=== PATIENT | female | born 1970 | race Caucasian/White ===

== ENCOUNTER 2020-12-07 08:42 | Inpatient (IN) ==
[2020-12-07] MEDS ORDERED: Isovue-370 500 ML BOTTLE IVP ONE (09:20)
[2020-12-07] MEDS ORDERED: methylPREDNISolone 125 MG/2 ML VIAL IVP ONE (09:31)
[2020-12-07 09:35] LABS: Hematocrit 49.1 % (35.3-44.9); Hemoglobin 15.9 g/dL (11.5-15.4); Mean Corpuscular HGB Conc 32.4 g/dL (31.6-35.5); Mean Corpuscular Hemoglobin 30.2 pg (28.0-33.3); Mean Corpuscular Volume 93.3 fL (83.0-100.0); Mean Platelet Volume 9.9 fL (9.4-12.4); Platelet Count 223 K/mcL (140-400); Red Blood Count 5.26 M/mcL (3.82-4.97); Red Cell Distribution Width 12.9 % (11.5-14.5); White Blood Count 7.9 K/mcL (4.3-11.1)
[2020-12-07 09:56] LABS: BUN/Creatinine Ratio 11 (6-26); Blood Urea Nitrogen 9 mg/dL (6-20); Calcium 9.5 mg/dL (8.6-10.3); Carbon Dioxide 26 mEq/L (23-29); Chloride 104 mEq/L (98-107); Glucose 116 mg/dL (70-105); Osmolality,Calculated 286 (280-300); Potassium 4.3 mEq/L (3.5-5.1); Sodium 138 mEq/L (136-145); eGFR For African Americans > 60 (> 60); eGFR For Non-African Americans > 60 (> 60)
[2020-12-07] MEDS ORDERED: *HR* Heparin 5,000 UNIT/ML VIAL IVP ONE ×2 (12:00→18:44)
[2020-12-07] MEDS ORDERED: *HR* Heparin 5,000 UNIT/ML VIAL IVP PRN ×4 (12:00→18:44)
[2020-12-07] MEDS ORDERED: Heparin 25,000UNIT/250ML 1/2NS 25,000 UNIT/250 ML IV.SOLN IVC SCH (12:00)
[2020-12-07] MEDS ORDERED: Acetaminophen 325 MG TABLET PO PRN ×2 (12:17→18:44)
[2020-12-07] MEDS ORDERED: Naloxone 0.4 MG/ML INJ IVP PRN ×3 (12:17→18:44)
[2020-12-07] MEDS ORDERED: Ondansetron 4 MG/2 ML VIAL IVP PRN ×2 (12:17→18:44)
[2020-12-07 12:42] LABS: Prothrombin Time 11.4 Seconds (9.4-12.1)
[2020-12-07 12:45] LABS: Activated Partial Thrombo Time 33.5 Seconds (26.0-36.0); Heparin anti-factor XA UFH < 0.04 IU/mL (0.30-0.70)
[2020-12-07] MEDS ORDERED: *HR* HYDROmorphone (PF) 1 MG/ML SYRINGE IVP STA ×2 (12:51→18:44)
[2020-12-07] MEDS ORDERED: Ondansetron 4 MG/2 ML VIAL IVP ONE ×2 (12:52→18:44)
[2020-12-07] MEDS ORDERED: Heparin 1,000 UNITS/500 mL 1,500 ML ONE (13:01)
[2020-12-07] MEDS ORDERED: *HR* Rocuronium Bromide 50 MG/5 ML VIAL ONE ×2 (13:07→14:28)
[2020-12-07] MEDS ORDERED: *HR* Propofol 200 MG/20 ML VIAL IVP ONE (13:07)
[2020-12-07] MEDS ORDERED: Lidocaine -MPF 2% 5 ML VIAL ONE ×2 (13:07→16:20)
[2020-12-07] MEDS ORDERED: Ondansetron 4 MG/2 ML VIAL ONE (13:07)
[2020-12-07] MEDS ORDERED: *HR* FentaNYL (PF) 100 MCG/2 ML VIAL ONE (13:07)
[2020-12-07] MEDS ORDERED: *HR* Midazolam HCl 2 MG/2 ML VIAL ONE (13:07)
[2020-12-07] MEDS ORDERED: Lidocaine HCL 4 ML Topical Solution (Laryng-O-Jet Kit Sterile Pak) TP ONE (13:07)
[2020-12-07] MEDS ORDERED: *HR* Heparin 5,000 UNIT/ML VIAL ONE (13:08)
[2020-12-07] MEDS ORDERED: Vancomycin 1,250 MG/262.5 ML IV.SOLN IVPB ONE (13:08)
[2020-12-07] MEDS ORDERED: *HR* Phenylephrine 10 MG/ML VIAL ONE (13:10)
[2020-12-07] MEDS ORDERED: Heparin 1,000 UNITS/500 mL 500 ML ONE (13:11)
[2020-12-07] MEDS ORDERED: *HR* HYDROMORPHONE 2 MG/ML VIAL ONE (13:16)
[2020-12-07] MEDS ORDERED: Vancomycin 1,000 MG VIAL ONE (13:41)
[2020-12-07] MEDS ORDERED: ceFAZolin 1,000 MG, Sodium Chloride IRRigation 1,000 ML IR ONE (14:00)
[2020-12-07] MEDS ORDERED: *HR* HYDROmorphone (PF) 1 MG/ML SYRINGE IVP PRN (15:03)
[2020-12-07] MEDS ORDERED: 0.9 % Sodium Chloride 1,000 ML IVC SCH (18:44)
[2020-12-07] MEDS: Heparin 25,000UNIT/250ML 1/2NS 25,000 UNIT/250 ML IV.SOLN IVC SCH (22:15)
[2020-12-08] MEDS: *HR* HYDROmorphone (PF) 1 MG/ML SYRINGE IVP PRN ×3 (00:11→18:31)
[2020-12-08] MEDS: Vancomycin 1,250 MG/262.5 ML IV.SOLN IVPB SCH ×2 (04:17→14:50)
[2020-12-08] MEDS: 0.9 % Sodium Chloride 1,000 ML IV SCH ×2 (04:18→18:28)
[2020-12-08] MEDS ORDERED: Nicotine 14 MG PATCH.TD24 TD SCH (09:00)
[2020-12-08] MEDS: Nicotine 14 MG PATCH.TD24 TD SCH (11:30)
[2020-12-08] MEDS: Magnesium Oxide 400 MG TABLET PO SCH (20:23)
[2020-12-08] MEDS: Heparin 25,000UNIT/250ML 1/2NS 25,000 UNIT/250 ML IV.SOLN IVC SCH (23:30)
[2020-12-09 01:59] LABS: Basophils # 0.1 K/mcL (0.0-0.2); Basophils % 0.6 %; Eosinophils # 0.1 K/mcL (0.0-0.6); Eosinophils % 0.9 %; Hematocrit 36.6 % (35.3-44.9); Hemoglobin 11.4 g/dL (11.5-15.4); Immature Granulocytes % 0.6 % (0-4); Lymphocytes # 2.7 K/mcL (0.6-4.6); Lymphocytes % 26.6 %; Mean Corpuscular HGB Conc 31.1 g/dL (31.6-35.5); Mean Corpuscular Hemoglobin 30.2 pg (28.0-33.3); Mean Corpuscular Volume 97.1 fL (83.0-100.0); Mean Platelet Volume 10.1 fL (9.4-12.4); Monocytes # 0.8 K/mcL (0.0-1.3); Monocytes % 7.3 %; Neutrophils # 6.6 K/mcL (1.6-8.9); Platelet Count 153 K/mcL (140-400); Red Blood Count 3.77 M/mcL (3.82-4.97); Red Cell Distribution Width 13.2 % (11.5-14.5); White Blood Count 10.3 K/mcL (4.3-11.1)
[2020-12-09 02:19] LABS: BUN/Creatinine Ratio 18 (6-26); Blood Urea Nitrogen 14 mg/dL (6-20); Calcium 7.8 mg/dL (8.6-10.3); Carbon Dioxide 25 mEq/L (23-29); Chloride 107 mEq/L (98-107); Chol/HDL Ratio 3.6 (0-4.9); Cholesterol 145 mg/dL (< 200); Glucose 119 mg/dL (70-105); HDL Cholesterol 40 mg/dL (40-59); LDL Cholesterol,Calculated 64 mg/dL (< 100); Magnesium 1.9 mg/dL (1.6-2.6); Osmolality,Calculated 284 (280-300); Phosphorous 2.6 mg/dL (2.7-4.5); Potassium 4.3 mEq/L (3.5-5.1); Sodium 136 mEq/L (136-145); Triglycerides 206 mg/dL (< 150); eGFR For African Americans > 60 (> 60); eGFR For Non-African Americans > 60 (> 60)
[2020-12-09] MEDS: 0.9 % Sodium Chloride 1,000 ML IV SCH ×2 (07:50→21:10)
[2020-12-09] MEDS: Nicotine 14 MG PATCH.TD24 TD SCH ×2 (08:27→18:52)
[2020-12-09] MEDS: Loratadine 10 MG TABLET PO SCH (08:28)
[2020-12-09] MEDS: Magnesium Oxide 400 MG TABLET PO SCH (21:08)
[2020-12-10 02:30] LABS: Basophils # 0.1 K/mcL (0.0-0.2); Basophils % 0.8 %; Eosinophils # 0.2 K/mcL (0.0-0.6); Hemoglobin 11.3 g/dL (11.5-15.4); Immature Granulocytes % 0.8 % (0-4); Lymphocytes # 2.1 K/mcL (0.6-4.6); Lymphocytes % 26.3 %; Mean Corpuscular HGB Conc 32.3 g/dL (31.6-35.5); Mean Corpuscular Hemoglobin 30.6 pg (28.0-33.3); Mean Corpuscular Volume 94.9 fL (83.0-100.0); Mean Platelet Volume 9.8 fL (9.4-12.4); Monocytes # 0.7 K/mcL (0.0-1.3); Monocytes % 8.2 %; Neutrophils # 4.8 K/mcL (1.6-8.9); Platelet Count 163 K/mcL (140-400); Red Blood Count 3.69 M/mcL (3.82-4.97); Segmented Neutrophils % 60.9 %; White Blood Count 7.9 K/mcL (4.3-11.1)
[2020-12-10 02:46] LABS: BUN/Creatinine Ratio 17 (6-26); Blood Urea Nitrogen 11 mg/dL (6-20); Calcium 8.3 mg/dL (8.6-10.3); Carbon Dioxide 25 mEq/L (23-29); Chloride 107 mEq/L (98-107); Glucose 118 mg/dL (70-105); Osmolality,Calculated 286 (280-300); Sodium 138 mEq/L (136-145); eGFR For African Americans > 60 (> 60); eGFR For Non-African Americans > 60 (> 60)
[2020-12-10] MEDS: Heparin 25,000UNIT/250ML 1/2NS 25,000 UNIT/250 ML IV.SOLN IVC SCH ×2 (04:43→10:42)
[2020-12-10] MEDS: Loratadine 10 MG TABLET PO SCH (08:34)
[2020-12-10] MEDS: Nicotine 14 MG PATCH.TD24 TD SCH (08:35)
[2020-12-10] MEDS: 0.9 % Sodium Chloride 1,000 ML IV SCH (12:27)
[2020-12-10] MEDS: Magnesium Oxide 400 MG TABLET PO SCH (21:57)
[2020-12-11 02:30] LABS: Basophils # 0.1 K/mcL (0.0-0.2); Basophils % 0.9 %; Eosinophils # 0.4 K/mcL (0.0-0.6); Eosinophils % 4.3 %; Hematocrit 34.6 % (35.3-44.9); Hemoglobin 11.1 g/dL (11.5-15.4); Immature Granulocytes % 0.8 % (0-4); Lymphocytes # 2.5 K/mcL (0.6-4.6); Lymphocytes % 28.4 %; Mean Corpuscular HGB Conc 32.1 g/dL (31.6-35.5); Mean Corpuscular Hemoglobin 30.2 pg (28.0-33.3); Mean Corpuscular Volume 94.3 fL (83.0-100.0); Mean Platelet Volume 10.1 fL (9.4-12.4); Monocytes # 0.7 K/mcL (0.0-1.3); Monocytes % 7.5 %; Neutrophils # 5.1 K/mcL (1.6-8.9); Platelet Count 168 K/mcL (140-400); Red Blood Count 3.67 M/mcL (3.82-4.97); Segmented Neutrophils % 58.1 %; White Blood Count 8.8 K/mcL (4.3-11.1)
[2020-12-11 02:53] LABS: BUN/Creatinine Ratio 15 (6-26); Blood Urea Nitrogen 10 mg/dL (6-20); Calcium 8.5 mg/dL (8.6-10.3); Carbon Dioxide 26 mEq/L (23-29); Chloride 107 mEq/L (98-107); Glucose 112 mg/dL (70-105); Osmolality,Calculated 286 (280-300); Potassium 3.9 mEq/L (3.5-5.1); Sodium 138 mEq/L (136-145); eGFR For African Americans > 60 (> 60); eGFR For Non-African Americans > 60 (> 60)
[2020-12-11] MEDS ORDERED: *HR* Rivaroxaban 15 MG TABLET PO SCH (09:00)
[2020-12-11] MEDS: Nicotine 14 MG PATCH.TD24 TD SCH (09:15)
[2020-12-11] MEDS: Loratadine 10 MG TABLET PO SCH (09:16)
[2020-12-11] MEDS: Heparin 25,000UNIT/250ML 1/2NS 25,000 UNIT/250 ML IV.SOLN IVC SCH ×2 (09:19→09:20)
[2020-12-12 19:00] VITALS: BP 159/63; PULSE 94; TEMP 97.9; O2SAT 91
[2020-12-13 16:20] LABS: APTT (LE Anticoag) 47 sec (32-48); Diluted Russell Viper Venom 29 sec (33-44); PT (LE-Anticoag) 12.1 sec (12.0-15.5)
[2020-12-13 18:28] LABS: Prothrombin G20210A Specimen WHOLE BLOOD
== END 2020-12-11 19:20 | disposition home or self-care (01) | DRG 271 ==
LOC: EMEROOARM 08:42 → 3NENU 08:42
PROVIDERS: ADMIT Pharmacist; ATTEND Pharmacist

== ENCOUNTER 2020-12-13 12:05 | Inpatient (IN) ==
[2020-12-13] MEDS ORDERED: Ondansetron 4 MG/2 ML VIAL IVP ONE (13:19)
[2020-12-13] MEDS ORDERED: *HR* HYDROmorphone (PF) 1 MG/ML SYRINGE IVP STA (13:19)
[2020-12-13] MEDS ORDERED: Acetaminophen 325 MG TABLET PO PRN (14:07)
[2020-12-13] MEDS ORDERED: Ondansetron ODT 4 MG TAB.RAPDIS SL PRN (14:07)
[2020-12-13] MEDS ORDERED: Naloxone 0.4 MG/ML INJ IVP PRN (14:07)
[2020-12-13] MEDS ORDERED: Melatonin 3 MG TABLET PO PRN (14:07)
[2020-12-13] MEDS ORDERED: Mag Hydrox/Al Hydrox/Simeth 30 ML UDC PO PRN (14:07)
[2020-12-13] MEDS ORDERED: *HR* HYDROcodone/Acet 5/325 mg TABLET PO PRN (14:07)
[2020-12-13] MEDS ORDERED: *HR* Rivaroxaban 10 MG TABLET PO SCH (14:30)
[2020-12-13 14:44] LABS: Hematocrit 37.5 % (35.3-44.9); Hemoglobin 12.4 g/dL (11.5-15.4); Mean Corpuscular HGB Conc 33.1 g/dL (31.6-35.5); Mean Corpuscular Hemoglobin 30.8 pg (28.0-33.3); Mean Corpuscular Volume 93.1 fL (83.0-100.0); Platelet Count 216 K/mcL (140-400); Red Blood Count 4.03 M/mcL (3.82-4.97); Red Cell Distribution Width 12.7 % (11.5-14.5)
[2020-12-13 15:03] LABS: BUN/Creatinine Ratio 14 (6-26); Blood Urea Nitrogen 9 mg/dL (6-20); Calcium 9.1 mg/dL (8.6-10.3); Carbon Dioxide 23 mEq/L (23-29); Chloride 104 mEq/L (98-107); Glucose 100 mg/dL (70-105); Osmolality,Calculated 281 (280-300); Sodium 136 mEq/L (136-145); eGFR For African Americans > 60 (> 60); eGFR For Non-African Americans > 60 (> 60)
[2020-12-13] MEDS: *HR* OxyCODONE Immed Rel 5 MG TABLET PO PRN (17:58)
[2020-12-14] MEDS: *HR* OxyCODONE Immed Rel 5 MG TABLET PO PRN (03:21)
[2020-12-14 05:38] LABS: INR 1.1; Prothrombin Time 12.4 Seconds (9.4-12.1)
[2020-12-14 05:41] LABS: BUN/Creatinine Ratio 11 (6-26); Blood Urea Nitrogen 8 mg/dL (6-20); Calcium 8.9 mg/dL (8.6-10.3); Carbon Dioxide 26 mEq/L (23-29); Chloride 102 mEq/L (98-107); Glucose 115 mg/dL (70-105); Osmolality,Calculated 279 (280-300); Sodium 135 mEq/L (136-145); eGFR For African Americans > 60 (> 60); eGFR For Non-African Americans > 60 (> 60)
[2020-12-14] MEDS: *HR* Rivaroxaban 10 MG TABLET PO SCH (08:57)
[2020-12-14] MEDS: *HR* OxyCODONE/APAP 10/325 TABLET PO PRN ×2 (09:00→20:01)
[2020-12-14 10:36] LABS: Hematocrit 38.3 % (35.3-44.9); Hemoglobin 12.2 g/dL (11.5-15.4); Mean Corpuscular HGB Conc 31.9 g/dL (31.6-35.5); Mean Corpuscular Hemoglobin 30.3 pg (28.0-33.3); Mean Platelet Volume 11.2 fL (9.4-12.4); Platelet Count 207 K/mcL (140-400); Red Blood Count 4.03 M/mcL (3.82-4.97); Red Cell Distribution Width 12.9 % (11.5-14.5); White Blood Count 9.9 K/mcL (4.3-11.1)
[2020-12-14] MEDS ORDERED: *HR* HYDROmorphone (PF) 1 MG/ML SYRINGE IVP ONE (11:48)
[2020-12-14] MEDS: *HR* HYDROmorphone 2 MG/ML SYRINGE IVP PRN ×2 (15:30→21:56)
[2020-12-14] MEDS: Gabapentin 100 MG CAPSULE PO SCH ×2 (17:51→20:01)
[2020-12-14] MEDS ORDERED: Magnesium Oxide 400 MG TABLET PO SCH (21:00)
[2020-12-15] MEDS: *HR* OxyCODONE/APAP 10/325 TABLET PO PRN ×3 (03:09→17:12)
[2020-12-15] MEDS: *HR* HYDROmorphone 2 MG/ML SYRINGE IVP PRN (05:39)
[2020-12-15] MEDS ORDERED: Loratadine 10 MG TABLET PO SCH (09:00)
[2020-12-15] MEDS ORDERED: Aspirin Enteric Coated 81 MG Tablet PO SCH (09:00)
[2020-12-15] MEDS: Gabapentin 100 MG CAPSULE PO SCH ×2 (10:39→15:07)
[2020-12-15] MEDS: *HR* Rivaroxaban 10 MG TABLET PO SCH (10:44)
[2020-12-15 16:45] VITALS: BP 144/81; PULSE 67; TEMP 97.9; O2SAT 99
== END 2020-12-15 18:30 | disposition home or self-care (01) | DRG 301 ==
LOC: EMEROOARM 12:05 → 3ANU 12:05 → SUATTDRO 15:28 → 3ANU 17:07 → SUATTDRO 12-14 14:03
PROVIDERS: ADMIT Family Medicine; ATTEND Student in an Organized Health Care Education/Training Program

== ENCOUNTER 2020-12-21 15:25 | Inpatient (IN) ==
[2020-12-21] MEDS ORDERED: *HR* FentaNYL (PF) 100 MCG/2 ML VIAL IVP ONE (19:46)
[2020-12-21] MEDS ORDERED: Ondansetron ODT 4 MG TAB.RAPDIS SL ONE (19:48)
[2020-12-21] MEDS ORDERED: *HR* FentaNYL (PF) 100 MCG/2 ML VIAL IVP STA (20:13)
[2020-12-21] MEDS ORDERED: Ondansetron 4 MG/2 ML VIAL IVP PRN (21:18)
[2020-12-21] MEDS ORDERED: Acetaminophen 325 MG TABLET PO PRN (21:18)
[2020-12-21] MEDS ORDERED: Melatonin 3 MG TABLET PO PRN (21:18)
[2020-12-21] MEDS ORDERED: Naloxone 0.4 MG/ML INJ IVP PRN (21:18)
[2020-12-21] MEDS ORDERED: *HR* Rivaroxaban 10 MG TABLET PO SCH (21:20)
[2020-12-22] MEDS: *HR* HYDROmorphone (PF) 1 MG/ML SYRINGE IVP PRN ×5 (02:38→22:42)
[2020-12-22] MEDS ORDERED: levoFLOXacin 500 MG/100 ML 500 MG/100 ML BAG IVPB ONE (03:55)
[2020-12-22] MEDS ORDERED: Ringers Solution, Lactated 500 ML IVC ONE (04:15)
[2020-12-22 04:48] LABS: INR 1.2; Prothrombin Time 13.7 Seconds (9.4-12.1)
[2020-12-22 04:58] LABS: Alanine Aminotransferase 28 Units/L (7-52); Albumin 3.6 g/dL (3.5-5.7); Albumin/Globulin Ratio 0.9 (1.1-2.2); Alkaline Phosphatase 86 Units/L (34-104); Aspartate Amino Transferase 39 Units/L (13-39); BUN/Creatinine Ratio 18 (6-26); Bilirubin,Total 0.3 mg/dL (0.3-1.0); Blood Urea Nitrogen 12 mg/dL (6-20); Calcium 9.2 mg/dL (8.6-10.3); Carbon Dioxide 23 mEq/L (23-29); Chloride 103 mEq/L (98-107); Globulin 3.8 g/dL (2.4-3.5); Glucose 136 mg/dL (70-105); Osmolality,Calculated 284 (280-300); Potassium 4.1 mEq/L (3.5-5.1); Sodium 136 mEq/L (136-145); Total Protein 7.4 g/dL (6.4-8.9); eGFR For African Americans > 60 (> 60); eGFR For Non-African Americans > 60 (> 60)
[2020-12-22] MEDS ORDERED: Vancomycin 1,500 MG/265 ML IV.SOLN IVPB SCH (05:00)
[2020-12-22 05:11] LABS: Basophils # 0.1 K/mcL (0.0-0.2); Basophils % 0.6 %; Eosinophils # 0.1 K/mcL (0.0-0.6); Eosinophils % 0.6 %; Hematocrit 36.4 % (35.3-44.9); Hemoglobin 11.9 g/dL (11.5-15.4); Immature Granulocytes % 0.5 % (0-4); Lymphocytes # 2.4 K/mcL (0.6-4.6); Lymphocytes % 16.1 %; Mean Corpuscular HGB Conc 32.7 g/dL (31.6-35.5); Mean Corpuscular Hemoglobin 30.5 pg (28.0-33.3); Mean Corpuscular Volume 93.3 fL (83.0-100.0); Mean Platelet Volume 9.6 fL (9.4-12.4); Monocytes % 6.6 %; Neutrophils # 11.1 K/mcL (1.6-8.9); Platelet Count 372 K/mcL (140-400); Red Cell Distribution Width 12.8 % (11.5-14.5); Segmented Neutrophils % 75.6 %; White Blood Count 14.6 K/mcL (4.3-11.1)
[2020-12-22] MEDS: Aspirin Enteric Coated 81 MG Tablet PO SCH (07:43)
[2020-12-22] MEDS: Gabapentin 300 MG CAPSULE PO SCH ×3 (07:43→20:39)
[2020-12-22] MEDS ORDERED: Gabapentin 300 MG CAPSULE PO SCH (09:00)
[2020-12-22 09:13] LABS: Bilirubin,Urine Negative (Negative); Blood,Urine Negative (Negative); Clarity,Urine Clear (Clear); Color,Urine Yellow (Yellow); Glucose,Urine (UA) Normal (Normal); Ketones,Urine Negative (Negative); Leukocyte Esterase,Urine Small (Negative); Mucus,Urine Few per lpf (None-Few); Nitrite,Urine Positive (Negative); Protein,Urine Trace mg/dL (Neg-Trace); RBC,Urine 0-3 per hpf (0-3); Specific Gravity,Urine 1.024 (1.010-1.025); Squamous Epithelial Cell,Urine Few per hpf (None-Few); Urobilinogen,Urine Normal (Normal); WBC,Urine 30-50 per hpf (0-3)
[2020-12-22] MEDS ORDERED: *HR* Heparin 5,000 UNIT/ML VIAL IVP PRN (10:14)
[2020-12-22] MEDS ORDERED: Heparin 25,000UNIT/250ML 1/2NS 25,000 UNIT/250 ML IV.SOLN IVC SCH ×2 (10:15→10:33)
[2020-12-22 12:32] LABS: Hematocrit 33.8 % (35.3-44.9); Hemoglobin 10.8 g/dL (11.5-15.4); Mean Corpuscular Volume 93.9 fL (83.0-100.0); Mean Platelet Volume 9.1 fL (9.4-12.4); Platelet Count 315 K/mcL (140-400); Red Cell Distribution Width 12.8 % (11.5-14.5); White Blood Count 13.8 K/mcL (4.3-11.1)
[2020-12-22 12:46] LABS: Heparin anti-factor XA UFH 0.1 IU/mL (0.30-0.70)
[2020-12-22 12:47] LABS: INR 1.2; Prothrombin Time 13.5 Seconds (9.4-12.1)
[2020-12-22] MEDS: Heparin 25,000UNIT/250ML 1/2NS 25,000 UNIT/250 ML IV.SOLN IVC SCH (13:22)
[2020-12-22] MEDS ORDERED: *HR* HYDROmorphone (PF) 1 MG/ML SYRINGE IVP ONE (13:45)
[2020-12-22] MEDS: Doxycycline 100 MG CAPSULE PO SCH (20:40)
[2020-12-22] MEDS: *HR* Heparin 5,000 UNIT/ML VIAL IVP PRN (20:46)
[2020-12-23] MEDS: *HR* HYDROmorphone (PF) 1 MG/ML SYRINGE IVP PRN ×6 (04:00→21:13)
[2020-12-23 05:05] LABS: Basophils # 0.1 K/mcL (0.0-0.2); Basophils % 0.8 %; Eosinophils # 0.1 K/mcL (0.0-0.6); Eosinophils % 0.9 %; Hematocrit 32.9 % (35.3-44.9); Hemoglobin 10.2 g/dL (11.5-15.4); Immature Granulocytes % 0.6 % (0-4); Lymphocytes # 2.3 K/mcL (0.6-4.6); Lymphocytes % 21.1 %; Mean Corpuscular Hemoglobin 29.5 pg (28.0-33.3); Mean Corpuscular Volume 95.1 fL (83.0-100.0); Mean Platelet Volume 9.1 fL (9.4-12.4); Monocytes # 0.8 K/mcL (0.0-1.3); Neutrophils # 7.7 K/mcL (1.6-8.9); Platelet Count 303 K/mcL (140-400); Red Blood Count 3.46 M/mcL (3.82-4.97); Segmented Neutrophils % 69.6 %
[2020-12-23] MEDS: Heparin 25,000UNIT/250ML 1/2NS 25,000 UNIT/250 ML IV.SOLN IVC SCH ×2 (05:23→19:50)
[2020-12-23 05:24] LABS: BUN/Creatinine Ratio 16 (6-26); Blood Urea Nitrogen 11 mg/dL (6-20); Calcium 8.8 mg/dL (8.6-10.3); Carbon Dioxide 24 mEq/L (23-29); Chloride 102 mEq/L (98-107); Glucose 144 mg/dL (70-105); Magnesium 1.9 mg/dL (1.6-2.6); Osmolality,Calculated 278 (280-300); Potassium 3.9 mEq/L (3.5-5.1); Sodium 133 mEq/L (136-145); eGFR For African Americans > 60 (> 60); eGFR For Non-African Americans > 60 (> 60)
[2020-12-23] MEDS: Gabapentin 300 MG CAPSULE PO SCH ×3 (08:37→21:12)
[2020-12-23] MEDS: Aspirin Enteric Coated 81 MG Tablet PO SCH (08:37)
[2020-12-23] MEDS: Doxycycline 100 MG CAPSULE PO SCH ×2 (08:38→21:13)
[2020-12-23] MEDS ORDERED: levoFLOXacin 500 MG/100 ML 500 MG/100 ML BAG IVPB SCH (09:00)
[2020-12-23] MEDS: *HR* Heparin 5,000 UNIT/ML VIAL IVP PRN (12:35)
[2020-12-23] MEDS ORDERED: Ketorolac 30 MG/ML VIAL IVP ONE (19:03)
[2020-12-23] MEDS ORDERED: Magnesium Oxide 400 MG TABLET PO SCH (21:00)
[2020-12-24] MEDS: *HR* HYDROmorphone (PF) 1 MG/ML SYRINGE IVP PRN ×6 (00:18→21:21)
[2020-12-24] MEDS: Gabapentin 300 MG CAPSULE PO SCH ×3 (07:49→21:25)
[2020-12-24] MEDS ORDERED: Loratadine 10 MG TABLET PO SCH (09:00)
[2020-12-24] MEDS ORDERED: levoFLOXacin 750 MG TABLET PO SCH (09:00)
[2020-12-24] MEDS: Aspirin Enteric Coated 81 MG Tablet PO SCH (13:01)
[2020-12-24] MEDS ORDERED: Lidocaine HCL 4 ML Topical Solution (Laryng-O-Jet Kit Sterile Pak) TP ONE (14:27)
[2020-12-24] MEDS ORDERED: *HR* FentaNYL (PF) 100 MCG/2 ML VIAL ONE (14:27)
[2020-12-24] MEDS ORDERED: *HR* Midazolam HCl 2 MG/2 ML VIAL ONE (14:27)
[2020-12-24] MEDS ORDERED: *HR* Propofol 200 MG/20 ML VIAL IVP ONE ×2 (14:28→17:44)
[2020-12-24] MEDS ORDERED: Lidocaine -MPF 2% 5 ML VIAL ONE (14:59)
[2020-12-24] MEDS ORDERED: Vancomycin 1,000 MG, Sodium Chloride IRRigation 1,000 ML IR ONE (15:00)
[2020-12-24] MEDS ORDERED: Vancomycin 1,000 MG, 0.9 % Sodium Chloride 1,000 ML IR ONE (15:00)
[2020-12-24] MEDS ORDERED: Vancomycin 1,500 MG/265 ML IV.SOLN IVPB ONE (15:00)
[2020-12-24] MEDS ORDERED: *HR* Meperidine 25 MG/ML SYRINGE IVP PRN (15:31)
[2020-12-24] MEDS ORDERED: Ondansetron 4 MG/2 ML VIAL IVP PRN (15:31)
[2020-12-24] MEDS ORDERED: Albuterol 2.5 MG/3 ML NEBULIZER IH PRN (15:31)
[2020-12-24] MEDS ORDERED: *HR* HYDROMORPHONE 2 MG/ML VIAL ONE (16:03)
[2020-12-24] MEDS ORDERED: Sugammadex Sodium 200 MG/2 ML VIAL IV ONE (16:03)
[2020-12-24] MEDS: *HR* HYDROmorphone PF 0.5 MG/0.5 ML SYRINGE IVP PRN ×3 (18:11→18:33)
[2020-12-24] MEDS ORDERED: 0.9 % Sodium Chloride 1,000 ML IVC SCH (19:55)
[2020-12-24] MEDS ORDERED: Naloxone 0.4 MG/ML INJ IVP PRN (19:55)
[2020-12-24] MEDS ORDERED: Sulfamethoxazole/Trimeth DS 1 EACH TABLET PO SCH ×2 (21:00)
[2020-12-24] MEDS: Magnesium Oxide 400 MG TABLET PO SCH (21:25)
[2020-12-24] MEDS ORDERED: Vancomycin 1,500 MG/265 ML IV.SOLN IVPB SCH (21:30)
[2020-12-24] MEDS: Melatonin 3 MG TABLET PO PRN (23:31)
[2020-12-24] MEDS: Acetaminophen 325 MG TABLET PO PRN (23:31)
[2020-12-25] MEDS: Vancomycin 1,500 MG/265 ML IV.SOLN IVPB SCH ×2 (04:13→14:39)
[2020-12-25] MEDS: *HR* HYDROmorphone (PF) 1 MG/ML SYRINGE IVP PRN ×6 (04:23→23:55)
[2020-12-25 05:24] LABS: Basophils # 0.1 K/mcL (0.0-0.2); Basophils % 0.5 %; Hematocrit 29.9 % (35.3-44.9); Hemoglobin 9.8 g/dL (11.5-15.4); Immature Granulocytes % 1.2 % (0-4); Lymphocytes # 1.4 K/mcL (0.6-4.6); Lymphocytes % 13.6 %; Mean Corpuscular HGB Conc 32.8 g/dL (31.6-35.5); Mean Corpuscular Hemoglobin 30.2 pg (28.0-33.3); Mean Corpuscular Volume 92.3 fL (83.0-100.0); Mean Platelet Volume 9.1 fL (9.4-12.4); Monocytes # 0.7 K/mcL (0.0-1.3); Monocytes % 6.7 %; Neutrophils # 8.1 K/mcL (1.6-8.9); Platelet Count 351 K/mcL (140-400); Red Blood Count 3.24 M/mcL (3.82-4.97); Red Cell Distribution Width 12.3 % (11.5-14.5); White Blood Count 10.4 K/mcL (4.3-11.1)
[2020-12-25 05:37] LABS: BUN/Creatinine Ratio 16 (6-26); Blood Urea Nitrogen 9 mg/dL (6-20); Calcium 8.8 mg/dL (8.6-10.3); Carbon Dioxide 27 mEq/L (23-29); Chloride 101 mEq/L (98-107); Glucose 125 mg/dL (70-105); Osmolality,Calculated 280 (280-300); Potassium 4.1 mEq/L (3.5-5.1); Sodium 135 mEq/L (136-145); eGFR For African Americans > 60 (> 60); eGFR For Non-African Americans > 60 (> 60)
[2020-12-25] MEDS: Gabapentin 300 MG CAPSULE PO SCH ×3 (07:58→20:01)
[2020-12-25] MEDS: Aspirin Enteric Coated 81 MG Tablet PO SCH (07:58)
[2020-12-25] MEDS: Loratadine 10 MG TABLET PO SCH (07:59)
[2020-12-25] MEDS: levoFLOXacin 750 MG TABLET PO SCH (07:59)
[2020-12-25] MEDS: Magnesium Oxide 400 MG TABLET PO SCH (20:01)
[2020-12-25] MEDS: Acetaminophen 325 MG TABLET PO PRN (20:02)
[2020-12-25] MEDS: Melatonin 3 MG TABLET PO PRN (22:12)
[2020-12-26] MEDS: *HR* HYDROmorphone (PF) 1 MG/ML SYRINGE IVP PRN ×5 (06:36→23:31)
[2020-12-26 07:53] LABS: Hematocrit 32.5 % (35.3-44.9)
[2020-12-26 08:08] LABS: BUN/Creatinine Ratio 16 (6-26); Blood Urea Nitrogen 11 mg/dL (6-20); Calcium 8.7 mg/dL (8.6-10.3); Carbon Dioxide 24 mEq/L (23-29); Chloride 104 mEq/L (98-107); Glucose 99 mg/dL (70-105); Magnesium 2.1 mg/dL (1.6-2.6); Osmolality,Calculated 283 (280-300); Phosphorous 4.1 mg/dL (2.7-4.5); Potassium 3.7 mEq/L (3.5-5.1); Sodium 137 mEq/L (136-145); eGFR For African Americans > 60 (> 60); eGFR For Non-African Americans > 60 (> 60)
[2020-12-26] MEDS: Aspirin Enteric Coated 81 MG Tablet PO SCH (08:49)
[2020-12-26] MEDS: Gabapentin 300 MG CAPSULE PO SCH (08:50)
[2020-12-26] MEDS: levoFLOXacin 750 MG TABLET PO SCH (08:50)
[2020-12-26] MEDS: Loratadine 10 MG TABLET PO SCH (08:50)
[2020-12-26] MEDS: *HR* OxyCODONE/APAP 10/325 TABLET PO PRN ×3 (13:06→21:22)
[2020-12-26] MEDS: Gabapentin 400 MG CAPSULE PO SCH ×2 (14:15→19:52)
[2020-12-26] MEDS: Magnesium Oxide 400 MG TABLET PO SCH (19:52)
[2020-12-27] MEDS: *HR* OxyCODONE/APAP 10/325 TABLET PO PRN ×4 (05:12→22:50)
[2020-12-27 05:17] LABS: Basophils # 0.1 K/mcL (0.0-0.2); Basophils % 1.2 %; Eosinophils # 0.1 K/mcL (0.0-0.6); Hematocrit 29.7 % (35.3-44.9); Hemoglobin 9.5 g/dL (11.5-15.4); Immature Granulocytes % 0.8 % (0-4); Lymphocytes # 2.2 K/mcL (0.6-4.6); Lymphocytes % 21.9 %; Mean Corpuscular Hemoglobin 30.3 pg (28.0-33.3); Mean Corpuscular Volume 94.6 fL (83.0-100.0); Neutrophils # 6.5 K/mcL (1.6-8.9); Platelet Count 310 K/mcL (140-400); Red Blood Count 3.14 M/mcL (3.82-4.97); Red Cell Distribution Width 13.1 % (11.5-14.5); Segmented Neutrophils % 65.1 %
[2020-12-27 05:38] LABS: % Iron Saturation 11 % (15-50); BUN/Creatinine Ratio 20 (6-26); Blood Urea Nitrogen 13 mg/dL (6-20); Calcium 8.5 mg/dL (8.6-10.3); Carbon Dioxide 28 mEq/L (23-29); Chloride 103 mEq/L (98-107); Glucose 116 mg/dL (70-105); Iron 27 mcg/dL (50-170); Magnesium 2.1 mg/dL (1.6-2.6); Osmolality,Calculated 285 (280-300); Potassium 3.8 mEq/L (3.5-5.1); Sodium 137 mEq/L (136-145); Transferrin 176 mg/dL (203-362); eGFR For African Americans > 60 (> 60); eGFR For Non-African Americans > 60 (> 60)
[2020-12-27 05:52] LABS: Ferritin 143 ng/mL (10-120)
[2020-12-27 05:58] LABS: Folate 3.5 ng/mL (3.0-16.0)
[2020-12-27] MEDS: *HR* Enoxaparin 40 MG/0.4 ML SYRINGE SQ SCH (06:49)
[2020-12-27] MEDS: *HR* HYDROmorphone (PF) 1 MG/ML SYRINGE IVP PRN ×4 (06:53→20:10)
[2020-12-27] MEDS: Loratadine 10 MG TABLET PO SCH (09:44)
[2020-12-27] MEDS: Aspirin Enteric Coated 81 MG Tablet PO SCH (09:44)
[2020-12-27] MEDS: Gabapentin 400 MG CAPSULE PO SCH ×3 (09:44→20:10)
[2020-12-27] MEDS: levoFLOXacin 750 MG TABLET PO SCH (09:44)
[2020-12-27] MEDS ORDERED: Cyanocobalamin (B-12) 1,000 MCG/ML VIAL SQ ONE (15:04)
[2020-12-27] MEDS: Magnesium Oxide 400 MG TABLET PO SCH (20:10)
[2020-12-28] MEDS: *HR* HYDROmorphone (PF) 1 MG/ML SYRINGE IVP PRN ×3 (03:57→18:45)
[2020-12-28 05:38] LABS: Basophils # 0.1 K/mcL (0.0-0.2); Eosinophils # 0.1 K/mcL (0.0-0.6); Hematocrit 29.3 % (35.3-44.9); Hemoglobin 9.6 g/dL (11.5-15.4); Immature Granulocytes % 1.2 % (0-4); Lymphocytes # 1.9 K/mcL (0.6-4.6); Lymphocytes % 16.2 %; Mean Corpuscular HGB Conc 32.8 g/dL (31.6-35.5); Mean Corpuscular Hemoglobin 30.5 pg (28.0-33.3); Mean Platelet Volume 9.1 fL (9.4-12.4); Monocytes # 1.1 K/mcL (0.0-1.3); Monocytes % 9.9 %; Neutrophils # 8.1 K/mcL (1.6-8.9); Platelet Count 293 K/mcL (140-400); Red Blood Count 3.15 M/mcL (3.82-4.97); Segmented Neutrophils % 70.7 %; White Blood Count 11.5 K/mcL (4.3-11.1)
[2020-12-28 06:03] LABS: BUN/Creatinine Ratio 17 (6-26); Blood Urea Nitrogen 11 mg/dL (6-20); Calcium 8.8 mg/dL (8.6-10.3); Carbon Dioxide 27 mEq/L (23-29); Chloride 101 mEq/L (98-107); Glucose 121 mg/dL (70-105); Magnesium 2.1 mg/dL (1.6-2.6); Osmolality,Calculated 281 (280-300); Potassium 4.1 mEq/L (3.5-5.1); Sodium 135 mEq/L (136-145); eGFR For African Americans > 60 (> 60); eGFR For Non-African Americans > 60 (> 60)
[2020-12-28] MEDS: *HR* OxyCODONE/APAP 10/325 TABLET PO PRN ×3 (07:20→22:21)
[2020-12-28] MEDS: *HR* Enoxaparin 40 MG/0.4 ML SYRINGE SQ SCH (07:20)
[2020-12-28] MEDS: levoFLOXacin 750 MG TABLET PO SCH (07:48)
[2020-12-28] MEDS: Gabapentin 400 MG CAPSULE PO SCH ×3 (07:48→22:18)
[2020-12-28] MEDS: Vitamin B Complex/Vit C/Vit E 1 EACH TABLET PO SCH (07:48)
[2020-12-28] MEDS: Loratadine 10 MG TABLET PO SCH (07:48)
[2020-12-28] MEDS: Aspirin Enteric Coated 81 MG Tablet PO SCH (07:48)
[2020-12-28] MEDS: Magnesium Oxide 400 MG TABLET PO SCH (22:18)
[2020-12-29] MEDS: *HR* HYDROmorphone (PF) 1 MG/ML SYRINGE IVP PRN ×5 (00:15→22:39)
[2020-12-29] MEDS: *HR* OxyCODONE/APAP 10/325 TABLET PO PRN ×4 (04:06→19:33)
[2020-12-29 05:26] LABS: BUN/Creatinine Ratio 20 (6-26); Blood Urea Nitrogen 12 mg/dL (6-20); Calcium 8.6 mg/dL (8.6-10.3); Carbon Dioxide 26 mEq/L (23-29); Chloride 101 mEq/L (98-107); Glucose 106 mg/dL (70-105); Magnesium 2.2 mg/dL (1.6-2.6); Osmolality,Calculated 282 (280-300); Potassium 4.1 mEq/L (3.5-5.1); Sodium 136 mEq/L (136-145); eGFR For African Americans > 60 (> 60); eGFR For Non-African Americans > 60 (> 60)
[2020-12-29 05:31] LABS: Basophils # 0.1 K/mcL (0.0-0.2); Eosinophils # 0.2 K/mcL (0.0-0.6); Monocytes # 1.1 K/mcL (0.0-1.3); Monocytes % 9.2 %; White Blood Count 11.5 K/mcL (4.3-11.1)
[2020-12-29] MEDS: *HR* Enoxaparin 40 MG/0.4 ML SYRINGE SQ SCH (05:40)
[2020-12-29 08:22] LABS: Eosinophils % 1.8 %; Hematocrit 30.2 % (35.3-44.9); Hemoglobin 9.5 g/dL (11.5-15.4); Immature Granulocytes % 1.1 % (0-4); Lymphocytes # 2.9 K/mcL (0.6-4.6); Lymphocytes % 25.3 %; Mean Corpuscular HGB Conc 31.5 g/dL (31.6-35.5); Mean Corpuscular Hemoglobin 29.7 pg (28.0-33.3); Mean Corpuscular Volume 94.4 fL (83.0-100.0); Mean Platelet Volume 9.5 fL (9.4-12.4); Platelet Count 316 K/mcL (140-400); Segmented Neutrophils % 61.6 %
[2020-12-29 08:23] LABS: Neutrophils # 7.1 K/mcL (1.6-8.9)
[2020-12-29] MEDS: levoFLOXacin 750 MG TABLET PO SCH (08:52)
[2020-12-29] MEDS: Loratadine 10 MG TABLET PO SCH (08:52)
[2020-12-29] MEDS: Gabapentin 400 MG CAPSULE PO SCH ×3 (08:52→19:33)
[2020-12-29] MEDS: Aspirin Enteric Coated 81 MG Tablet PO SCH (08:52)
[2020-12-29] MEDS: Vitamin B Complex/Vit C/Vit E 1 EACH TABLET PO SCH (08:53)
[2020-12-29] MEDS: Sennosides/Docusate Sodium TABLET PO SCH ×2 (13:47→19:33)
[2020-12-29] MEDS: polyethylene glycoL 3350 17 GM POWD.PACK PO SCH (13:47)
[2020-12-29] MEDS: tiZANidine 4 MG TABLET PO SCH ×2 (18:16→19:33)
[2020-12-29] MEDS: Magnesium Oxide 400 MG TABLET PO SCH (19:33)
[2020-12-30] MEDS: *HR* HYDROmorphone (PF) 1 MG/ML SYRINGE IVP PRN ×3 (02:10→23:26)
[2020-12-30] MEDS: *HR* OxyCODONE/APAP 10/325 TABLET PO PRN (04:15)
[2020-12-30 06:06] LABS: Basophils # 0.1 K/mcL (0.0-0.2); Eosinophils # 0.2 K/mcL (0.0-0.6); Eosinophils % 1.9 %; Hematocrit 30.1 % (35.3-44.9); Hemoglobin 9.7 g/dL (11.5-15.4); Immature Granulocytes % 1.3 % (0-4); Lymphocytes # 2.7 K/mcL (0.6-4.6); Lymphocytes % 25.6 %; Mean Corpuscular HGB Conc 32.2 g/dL (31.6-35.5); Mean Corpuscular Hemoglobin 29.9 pg (28.0-33.3); Mean Corpuscular Volume 92.9 fL (83.0-100.0); Mean Platelet Volume 9.2 fL (9.4-12.4); Monocytes # 1.1 K/mcL (0.0-1.3); Monocytes % 10.1 %; Neutrophils # 6.3 K/mcL (1.6-8.9); Platelet Count 307 K/mcL (140-400); Red Blood Count 3.24 M/mcL (3.82-4.97); Red Cell Distribution Width 12.8 % (11.5-14.5); Segmented Neutrophils % 60.1 %; White Blood Count 10.5 K/mcL (4.3-11.1)
[2020-12-30 06:26] LABS: BUN/Creatinine Ratio 18 (6-26); Blood Urea Nitrogen 12 mg/dL (6-20); Calcium 8.7 mg/dL (8.6-10.3); Carbon Dioxide 28 mEq/L (23-29); Chloride 100 mEq/L (98-107); Glucose 104 mg/dL (70-105); Magnesium 2.2 mg/dL (1.6-2.6); Osmolality,Calculated 280 (280-300); Potassium 4.2 mEq/L (3.5-5.1); Sodium 135 mEq/L (136-145); eGFR For African Americans > 60 (> 60); eGFR For Non-African Americans > 60 (> 60)
[2020-12-30] MEDS: *HR* Enoxaparin 40 MG/0.4 ML SYRINGE SQ SCH (07:01)
[2020-12-30] MEDS ORDERED: Lactulose Oral Soln 20 GM/30 ML UDC PO ONE (09:10)
[2020-12-30] MEDS: Aspirin Enteric Coated 81 MG Tablet PO SCH (09:26)
[2020-12-30] MEDS: Gabapentin 400 MG CAPSULE PO SCH ×3 (09:27→21:41)
[2020-12-30] MEDS: tiZANidine 4 MG TABLET PO SCH ×3 (09:27→21:41)
[2020-12-30] MEDS: Loratadine 10 MG TABLET PO SCH (09:27)
[2020-12-30] MEDS: Vitamin B Complex/Vit C/Vit E 1 EACH TABLET PO SCH (09:27)
[2020-12-30] MEDS: polyethylene glycoL 3350 17 GM POWD.PACK PO SCH (09:28)
[2020-12-30] MEDS: levoFLOXacin 750 MG TABLET PO SCH (09:28)
[2020-12-30] MEDS: Acetaminophen 325 MG TABLET PO PRN ×2 (12:39→21:40)
[2020-12-30] MEDS: *HR* OxyCODONE Immed Rel 15 MG TABLET PO PRN ×2 (12:39→19:02)
[2020-12-30] MEDS: Magnesium Oxide 400 MG TABLET PO SCH (21:41)
[2020-12-31] MEDS: *HR* OxyCODONE Immed Rel 15 MG TABLET PO PRN ×4 (01:41→15:12)
[2020-12-31] MEDS: Acetaminophen 325 MG TABLET PO PRN ×2 (03:48→12:44)
[2020-12-31 05:33] LABS: Basophils # 0.1 K/mcL (0.0-0.2); Basophils % 1.1 %; Eosinophils # 0.3 K/mcL (0.0-0.6); Eosinophils % 2.5 %; Hemoglobin 9.3 g/dL (11.5-15.4); Immature Granulocytes % 1.1 % (0-4); Lymphocytes # 2.7 K/mcL (0.6-4.6); Lymphocytes % 26.2 %; Mean Corpuscular HGB Conc 32.1 g/dL (31.6-35.5); Mean Corpuscular Hemoglobin 29.9 pg (28.0-33.3); Mean Corpuscular Volume 93.2 fL (83.0-100.0); Mean Platelet Volume 9.3 fL (9.4-12.4); Monocytes % 9.5 %; Neutrophils # 6.2 K/mcL (1.6-8.9); Platelet Count 339 K/mcL (140-400); Red Blood Count 3.11 M/mcL (3.82-4.97); Red Cell Distribution Width 12.8 % (11.5-14.5); Segmented Neutrophils % 59.6 %; White Blood Count 10.4 K/mcL (4.3-11.1)
[2020-12-31 05:57] LABS: BUN/Creatinine Ratio 17 (6-26); Blood Urea Nitrogen 12 mg/dL (6-20); Calcium 8.5 mg/dL (8.6-10.3); Carbon Dioxide 28 mEq/L (23-29); Chloride 100 mEq/L (98-107); Glucose 108 mg/dL (70-105); Magnesium 2.4 mg/dL (1.6-2.6); Osmolality,Calculated 278 (280-300); Potassium 4.3 mEq/L (3.5-5.1); Sodium 134 mEq/L (136-145); eGFR For African Americans > 60 (> 60); eGFR For Non-African Americans > 60 (> 60)
[2020-12-31] MEDS: *HR* Enoxaparin 40 MG/0.4 ML SYRINGE SQ SCH (06:22)
[2020-12-31] MEDS: Vitamin B Complex/Vit C/Vit E 1 EACH TABLET PO SCH (08:11)
[2020-12-31] MEDS: levoFLOXacin 750 MG TABLET PO SCH (08:11)
[2020-12-31] MEDS: Loratadine 10 MG TABLET PO SCH (08:11)
[2020-12-31] MEDS: Gabapentin 400 MG CAPSULE PO SCH ×2 (08:12→15:12)
[2020-12-31] MEDS: tiZANidine 4 MG TABLET PO SCH ×2 (08:12→15:12)
[2020-12-31] MEDS: Aspirin Enteric Coated 81 MG Tablet PO SCH (08:12)
[2020-12-31] MEDS: polyethylene glycoL 3350 17 GM POWD.PACK PO SCH (08:13)
[2020-12-31 14:30] VITALS: BP 116/78; PULSE 95; TEMP 97.9; O2SAT 95
[2020-12-31 15:34] LABS: Influenza A PCR Negative (Negative); Influenza B PCR Negative (Negative); Resp. Syncytial Virus PCR Negative (Negative)
[2020-12-31 16:21] LABS: SARS-CoV-2 by PCR (In House) Negative (Negative)
== END 2020-12-31 16:50 | DRG 239 ==
LOC: 4WAOSI 15:25 → EMEROOARM 15:25 → 4WAOSI 22:10 → SUATTDRO 12-22 12:12
PROVIDERS: ADMIT Internal Medicine; ATTEND Pharmacist

== ENCOUNTER 2021-01-29 22:02 | Inpatient (IN) ==
[2021-01-29] MEDS ORDERED: Cefepime HCl 2,000 MG in Water for inj. (sterile) 10 ML IVP ONE (23:06)
[2021-01-29] MEDS ORDERED: Vancomycin 1,750 MG/517.5 ML IV.SOLN IVPB ONE (23:06)
[2021-01-29] MEDS ORDERED: 0.9 % Sodium Chloride 1,000 ML IVC ONE (23:06)
[2021-01-30] MEDS ORDERED: Morphine Sulfate 2 MG/ML SYRINGE IVP ONE ×2 (00:08→11:07)
[2021-01-30 00:21] LABS: Alanine Aminotransferase 12 Units/L (7-52); Albumin 3.6 g/dL (3.5-5.7); Albumin/Globulin Ratio 1.1 (1.1-2.2); Alkaline Phosphatase 77 Units/L (34-104); Aspartate Amino Transferase 11 Units/L (13-39); BUN/Creatinine Ratio 17 (6-26); Bilirubin,Indirect 0.2 mg/dL (0.0-1.0); Bilirubin,Total 0.2 mg/dL (0.3-1.0); Blood Urea Nitrogen 10 mg/dL (6-20); Calcium 8.7 mg/dL (8.6-10.3); Carbon Dioxide 26 mEq/L (23-29); Chloride 105 mEq/L (98-107); Globulin 3.4 g/dL (2.4-3.5); Glucose 136 mg/dL (70-105); Osmolality,Calculated 287 (280-300); Potassium 4.2 mEq/L (3.5-5.1); Sodium 138 mEq/L (136-145); eGFR For African Americans > 60 (> 60); eGFR For Non-African Americans > 60 (> 60)
[2021-01-30 00:22] LABS: Basophils # 0.1 K/mcL (0.0-0.2); Eosinophils # 0.2 K/mcL (0.0-0.6); Eosinophils % 2.4 %; Hematocrit 34.9 % (35.3-44.9); Hemoglobin 10.9 g/dL (11.5-15.4); Lymphocytes # 2.4 K/mcL (0.6-4.6); Lymphocytes % 30.6 %; Mean Corpuscular HGB Conc 31.2 g/dL (31.6-35.5); Mean Corpuscular Hemoglobin 28.8 pg (28.0-33.3); Mean Corpuscular Volume 92.1 fL (83.0-100.0); Mean Platelet Volume 9.2 fL (9.4-12.4); Monocytes # 0.5 K/mcL (0.0-1.3); Monocytes % 6.6 %; Neutrophils # 4.6 K/mcL (1.6-8.9); Platelet Count 336 K/mcL (140-400); Red Blood Count 3.79 M/mcL (3.82-4.97); Red Cell Distribution Width 13.2 % (11.5-14.5); Segmented Neutrophils % 58.4 %; White Blood Count 7.9 K/mcL (4.3-11.1)
[2021-01-30] MEDS ORDERED: Ondansetron 4 MG/2 ML VIAL IVP PRN ×2 (01:41→17:03)
[2021-01-30] MEDS ORDERED: Naloxone 0.4 MG/ML INJ IVP PRN ×4 (01:41→17:03)
[2021-01-30] MEDS ORDERED: *HR* Promethazine 25 MG/ML VIAL IM PRN ×2 (01:41→17:03)
[2021-01-30] MEDS ORDERED: Acetaminophen 325 MG TABLET PO PRN ×2 (01:41→17:03)
[2021-01-30] MEDS ORDERED: *HR* OxyCODONE Immed Rel 5 MG TABLET PO PRN ×2 (01:41→17:03)
[2021-01-30] MEDS ORDERED: *HR* HYDROcodone/Acet 5/325 mg TABLET PO PRN ×2 (01:41→17:03)
[2021-01-30] MEDS ORDERED: Melatonin 3 MG TABLET PO PRN ×2 (01:41→17:03)
[2021-01-30 02:36] LABS: Influenza A PCR Negative (Negative); Influenza B PCR Negative (Negative); Resp. Syncytial Virus PCR Negative (Negative)
[2021-01-30] MEDS ORDERED: *HR* HYDROmorphone (PF) 1 MG/ML SYRINGE IVP ONE (02:47)
[2021-01-30 02:52] LABS: SARS-CoV-2 by PCR (In House) Negative (Negative)
[2021-01-30] MEDS: Ringers Solution, Lactated 1,000 ML IVC SCH ×2 (03:44→18:08)
[2021-01-30 04:55] LABS: Bilirubin,Urine Negative (Negative); Blood,Urine Negative (Negative); Clarity,Urine Clear (Clear); Color,Urine Colorless (Yellow); Glucose,Urine (UA) Normal (Normal); Ketones,Urine Negative (Negative); Leukocyte Esterase,Urine Negative (Negative); Nitrite,Urine Negative (Negative); Protein,Urine Negative (Neg-Trace); Specific Gravity,Urine 1.009 (1.010-1.025); Urobilinogen,Urine Normal (Normal)
[2021-01-30 04:56] LABS: Basophils # 0.1 K/mcL (0.0-0.2); Basophils % 1.1 %; Eosinophils # 0.2 K/mcL (0.0-0.6); Eosinophils % 2.3 %; Hematocrit 36.1 % (35.3-44.9); Hemoglobin 10.8 g/dL (11.5-15.4); Immature Granulocytes % 0.6 % (0-4); Lymphocytes # 2.1 K/mcL (0.6-4.6); Lymphocytes % 29.5 %; Mean Corpuscular HGB Conc 29.9 g/dL (31.6-35.5); Mean Corpuscular Volume 93.5 fL (83.0-100.0); Mean Platelet Volume 9.2 fL (9.4-12.4); Monocytes # 0.5 K/mcL (0.0-1.3); Monocytes % 6.9 %; Neutrophils # 4.2 K/mcL (1.6-8.9); Platelet Count 297 K/mcL (140-400); Red Blood Count 3.86 M/mcL (3.82-4.97); Red Cell Distribution Width 13.4 % (11.5-14.5); Segmented Neutrophils % 59.6 %; White Blood Count 7.1 K/mcL (4.3-11.1)
[2021-01-30 04:59] LABS: INR 0.9; Prothrombin Time 10.5 Seconds (9.4-12.1)
[2021-01-30 05:02] LABS: Activated Partial Thrombo Time 29.1 Seconds (26.0-36.0)
[2021-01-30 05:12] LABS: BUN/Creatinine Ratio 15 (6-26); Blood Urea Nitrogen 9 mg/dL (6-20); Calcium 8.3 mg/dL (8.6-10.3); Carbon Dioxide 24 mEq/L (23-29); Chloride 108 mEq/L (98-107); Glucose 108 mg/dL (70-105); Magnesium 1.8 mg/dL (1.6-2.6); Osmolality,Calculated 287 (280-300); Potassium 3.9 mEq/L (3.5-5.1); Sodium 139 mEq/L (136-145); eGFR For African Americans > 60 (> 60); eGFR For Non-African Americans > 60 (> 60)
[2021-01-30] MEDS: MetroNIDAZOLE 500 MG/100 ML 500 MG/100 ML BAG IVPB SCH ×2 (05:37→18:08)
[2021-01-30] MEDS: Cefepime HCl 2,000 MG in Water for inj. (sterile) 20 ML IVP SCH ×3 (09:49→23:45)
[2021-01-30] MEDS ORDERED: *HR* FentaNYL (PF) 100 MCG/2 ML VIAL ONE (11:01)
[2021-01-30] MEDS ORDERED: Ondansetron 4 MG/2 ML VIAL ONE (11:02)
[2021-01-30] MEDS ORDERED: *HR* Midazolam HCl 2 MG/2 ML VIAL ONE (11:02)
[2021-01-30] MEDS ORDERED: *HR* Propofol 200 MG/20 ML VIAL IVP ONE (11:02)
[2021-01-30] MEDS ORDERED: Lidocaine -MPF 2% 5 ML VIAL ONE (11:02)
[2021-01-30] MEDS ORDERED: *HR* Rocuronium Bromide 50 MG/5 ML VIAL ONE (11:04)
[2021-01-30] MEDS ORDERED: Vancomycin 1,000 MG VIAL ONE (11:19)
[2021-01-30] MEDS ORDERED: Acetaminophen IV 1,000 MG/100 ML BAG IVPB ONE (11:43)
[2021-01-30] MEDS ORDERED: Dexmedetomidine HCl 400 MCG/100 ML MLS IVC ONE (11:43)
[2021-01-30] MEDS ORDERED: *HR* Magnesium Sulfate 1 GM/2 ML VIAL ONE (12:35)
[2021-01-30] MEDS ORDERED: Vancomycin 1,250 MG/262.5 ML IV.SOLN IVPB SCH (13:00)
[2021-01-30] MEDS ORDERED: Neostigmine Methylsulfate 3 MG/3 ML SYRINGE ONE (13:37)
[2021-01-30] MEDS ORDERED: *HR* HYDROMORPHONE 2 MG/ML VIAL ONE (13:45)
[2021-01-30] MEDS: *HR* HYDROmorphone PF 0.5 MG/0.5 ML SYRINGE IVP PRN ×3 (14:47→15:04)
[2021-01-30] MEDS ORDERED: Ketorolac 30 MG/ML VIAL ONE (15:36)
[2021-01-30] MEDS ORDERED: Pregabalin 75 MG CAPSULE ONE (15:37)
[2021-01-30] MEDS ORDERED: Ketorolac 30 MG/ML VIAL IVP ONE (15:42)
[2021-01-30] MEDS ORDERED: Pregabalin 75 MG CAPSULE PO ONE (15:42)
[2021-01-30] MEDS ORDERED: Ringers Solution, Lactated 1,000 ML IVC SCH (17:03)
[2021-01-30] MEDS ORDERED: MetroNIDAZOLE 500 MG/100 ML 500 MG/100 ML BAG IVPB SCH (19:00)
[2021-01-30] MEDS: *HR* OxyCODONE Immed Rel 15 MG TABLET PO PRN (20:36)
[2021-01-31] MEDS: MetroNIDAZOLE 500 MG/100 ML 500 MG/100 ML BAG IVPB SCH ×2 (00:55→06:02)
[2021-01-31] MEDS: Vancomycin 1,250 MG/262.5 ML IV.SOLN IVPB SCH ×2 (02:09→13:53)
[2021-01-31] MEDS: *HR* OxyCODONE Immed Rel 15 MG TABLET PO PRN ×2 (05:50→09:11)
[2021-01-31 07:22] LABS: Basophils # 0.1 K/mcL (0.0-0.2); Basophils % 0.4 %; Hematocrit 25.9 % (35.3-44.9); Immature Granulocytes % 0.7 % (0-4); Lymphocytes # 2.3 K/mcL (0.6-4.6); Lymphocytes % 16.6 %; Mean Corpuscular HGB Conc 31.7 g/dL (31.6-35.5); Mean Corpuscular Volume 88.4 fL (83.0-100.0); Mean Platelet Volume 9.2 fL (9.4-12.4); Monocytes # 0.8 K/mcL (0.0-1.3); Monocytes % 5.9 %; Neutrophils # 10.5 K/mcL (1.6-8.9); Platelet Count 320 K/mcL (140-400); Red Blood Count 2.93 M/mcL (3.82-4.97); Red Cell Distribution Width 13.5 % (11.5-14.5); Segmented Neutrophils % 76.4 %
[2021-01-31 07:23] LABS: Hemoglobin 8.2 g/dL (11.5-15.4); White Blood Count 13.8 K/mcL (4.3-11.1)
[2021-01-31 07:24] LABS: BUN/Creatinine Ratio 16 (6-26); Blood Urea Nitrogen 10 mg/dL (6-20); Calcium 8.3 mg/dL (8.6-10.3); Carbon Dioxide 24 mEq/L (23-29); Chloride 106 mEq/L (98-107); Glucose 129 mg/dL (70-105); Osmolality,Calculated 287 (280-300); Sodium 138 mEq/L (136-145); eGFR For African Americans > 60 (> 60); eGFR For Non-African Americans > 60 (> 60)
[2021-01-31] MEDS: Cefepime HCl 2,000 MG in Water for inj. (sterile) 20 ML IVP SCH ×2 (08:04→16:14)
[2021-01-31] MEDS ORDERED: Naloxone 0.4 MG/ML INJ IVP PRN (08:21)
[2021-01-31] MEDS: Gabapentin 400 MG CAPSULE PO SCH ×2 (09:11→09:17)
[2021-01-31] MEDS: Loratadine 10 MG TABLET PO SCH (09:11)
[2021-01-31] MEDS ORDERED: Morphine Sulfate 2 MG/ML SYRINGE IVP PRN (09:15)
[2021-01-31] MEDS ORDERED: *HR* OxyCODONE Immed Rel 15 MG TABLET PO PRN (09:16)
[2021-01-31] MEDS: Pregabalin 75 MG CAPSULE PO SCH ×2 (09:24→21:18)
[2021-01-31] MEDS ORDERED: *HR* OxyCODONE/APAP 5/325 TABLET PO PRN (12:05)
[2021-01-31] MEDS ORDERED: *HR* OxyCODONE/APAP 7.5/325 TABLET PO PRN (12:05)
[2021-01-31] MEDS ORDERED: Ketorolac 30 MG/ML VIAL IVP ONE (12:07)
[2021-01-31] MEDS: *HR* OxyCODONE/APAP 10/325 TABLET PO PRN ×3 (13:09→21:17)
[2021-01-31] MEDS: Ketorolac 30 MG/ML VIAL IVP SCH (18:04)
[2021-01-31] MEDS: Melatonin 3 MG TABLET PO SCH (21:18)
[2021-02-01] MEDS: Ketorolac 30 MG/ML VIAL IVP SCH ×5 (00:01→23:57)
[2021-02-01] MEDS: Cefepime HCl 2,000 MG in Water for inj. (sterile) 20 ML IVP SCH ×4 (00:02→23:56)
[2021-02-01] MEDS: Vancomycin 1,250 MG/262.5 ML IV.SOLN IVPB SCH ×3 (00:02→23:58)
[2021-02-01 02:22] LABS: Hematocrit 23.5 % (35.3-44.9); Hemoglobin 7.3 g/dL (11.5-15.4); Mean Corpuscular HGB Conc 31.1 g/dL (31.6-35.5); Mean Corpuscular Hemoglobin 29.1 pg (28.0-33.3); Mean Corpuscular Volume 93.6 fL (83.0-100.0); Mean Platelet Volume 9.1 fL (9.4-12.4); Platelet Count 261 K/mcL (140-400); Red Blood Count 2.51 M/mcL (3.82-4.97); White Blood Count 8.1 K/mcL (4.3-11.1)
[2021-02-01] MEDS: *HR* OxyCODONE/APAP 10/325 TABLET PO PRN ×5 (02:23→19:16)
[2021-02-01 02:36] LABS: BUN/Creatinine Ratio 20 (6-26); Blood Urea Nitrogen 14 mg/dL (6-20); Calcium 7.8 mg/dL (8.6-10.3); Carbon Dioxide 26 mEq/L (23-29); Chloride 108 mEq/L (98-107); Glucose 146 mg/dL (70-105); Osmolality,Calculated 291 (280-300); Potassium 4.1 mEq/L (3.5-5.1); Sodium 139 mEq/L (136-145); eGFR For African Americans > 60 (> 60); eGFR For Non-African Americans > 60 (> 60)
[2021-02-01] MEDS: Loratadine 10 MG TABLET PO SCH (09:17)
[2021-02-01] MEDS: Pregabalin 75 MG CAPSULE PO SCH ×2 (09:17→21:15)
[2021-02-01 12:50] LABS: Hematocrit 24.8 % (35.3-44.9); Hemoglobin 7.6 g/dL (11.5-15.4)
[2021-02-01] MEDS: Melatonin 3 MG TABLET PO SCH (21:15)
[2021-02-02 02:41] LABS: Hemoglobin 7.5 g/dL (11.5-15.4); Mean Corpuscular Hemoglobin 28.3 pg (28.0-33.3); Mean Corpuscular Volume 94.3 fL (83.0-100.0); Mean Platelet Volume 9.3 fL (9.4-12.4); Platelet Count 276 K/mcL (140-400); Red Blood Count 2.65 M/mcL (3.82-4.97); White Blood Count 8.8 K/mcL (4.3-11.1)
[2021-02-02 02:50] LABS: BUN/Creatinine Ratio 27 (6-26); Blood Urea Nitrogen 16 mg/dL (6-20); Carbon Dioxide 27 mEq/L (23-29); Chloride 107 mEq/L (98-107); Glucose 146 mg/dL (70-105); Osmolality,Calculated 292 (280-300); Potassium 4.2 mEq/L (3.5-5.1); Sodium 139 mEq/L (136-145); eGFR For African Americans > 60 (> 60); eGFR For Non-African Americans > 60 (> 60)
[2021-02-02] MEDS: Ketorolac 30 MG/ML VIAL IVP SCH ×3 (05:55→19:32)
[2021-02-02] MEDS: *HR* OxyCODONE/APAP 10/325 TABLET PO PRN ×4 (08:50→21:17)
[2021-02-02] MEDS: Loratadine 10 MG TABLET PO SCH (08:51)
[2021-02-02] MEDS: Pregabalin 75 MG CAPSULE PO SCH ×2 (08:51→20:33)
[2021-02-02] MEDS: Cefepime HCl 2,000 MG in Water for inj. (sterile) 20 ML IVP SCH (08:52)
[2021-02-02] MEDS: Vancomycin 1,250 MG/262.5 ML IV.SOLN IVPB SCH (19:51)
[2021-02-02] MEDS: Melatonin 3 MG TABLET PO SCH (20:33)
[2021-02-03] MEDS: *HR* OxyCODONE/APAP 10/325 TABLET PO PRN ×5 (01:21→18:24)
[2021-02-03 02:29] LABS: Basophils # 0.1 K/mcL (0.0-0.2); Eosinophils # 0.6 K/mcL (0.0-0.6); Hematocrit 23.9 % (35.3-44.9); Hemoglobin 7.1 g/dL (11.5-15.4); Immature Granulocytes % 1.7 % (0-4); Lymphocytes # 2.3 K/mcL (0.6-4.6); Mean Corpuscular HGB Conc 29.7 g/dL (31.6-35.5); Mean Corpuscular Hemoglobin 28.2 pg (28.0-33.3); Mean Corpuscular Volume 94.8 fL (83.0-100.0); Mean Platelet Volume 9.2 fL (9.4-12.4); Monocytes # 0.6 K/mcL (0.0-1.3); Monocytes % 7.2 %; Neutrophils # 4.6 K/mcL (1.6-8.9); Nucleated Red Blood Cells 0.2 /100 WBC (0); Platelet Count 260 K/mcL (140-400); Red Blood Count 2.52 M/mcL (3.82-4.97); Segmented Neutrophils % 55.1 %; White Blood Count 8.3 K/mcL (4.3-11.1)
[2021-02-03] MEDS: Loratadine 10 MG TABLET PO SCH (08:36)
[2021-02-03] MEDS: Pregabalin 75 MG CAPSULE PO SCH ×2 (08:36→19:50)
[2021-02-03] MEDS: Cyanocobalamin (B-12) 1,000 MCG TABLET PO SCH (08:37)
[2021-02-03] MEDS: Ibuprofen 400 MG TABLET PO SCH ×3 (09:56→23:57)
[2021-02-03 12:12] LABS: Hematocrit 26.6 % (35.3-44.9)
[2021-02-03] MEDS: Melatonin 3 MG TABLET PO SCH (19:51)
[2021-02-04 06:19] VITALS: BP 136/75; PULSE 108; TEMP 98; O2SAT 96
[2021-02-04] MEDS: Ibuprofen 400 MG TABLET PO SCH (07:47)
[2021-02-04] MEDS: Cyanocobalamin (B-12) 1,000 MCG TABLET PO SCH (07:48)
[2021-02-04] MEDS: Loratadine 10 MG TABLET PO SCH (07:48)
[2021-02-04] MEDS: Pregabalin 75 MG CAPSULE PO SCH (07:49)
[2021-02-04] MEDS: *HR* OxyCODONE/APAP 10/325 TABLET PO PRN ×2 (07:53→14:10)
[2021-02-04] MEDS ORDERED: Metoprolol XL (24 HR) Succ 25 MG TAB.ER.24H PO SCH (09:00)
== END 2021-02-04 16:00 | disposition home health service (06) | DRG 475 ==
LOC: EMEROOARM 22:02 → 3NENU 22:02 → SUATTDRO 01-30 02:09 → 3NENU 01-30 03:11
PROVIDERS: ADMIT Internal Medicine; ATTEND Internal Medicine